=== PATIENT | male | born 1950 | race Caucasian/White ===

== ENCOUNTER → 2018-04-12 | Outpatient (CLI) | payer MEDICARE ==
[2018-04-12 13:41] LABS: ALANINE AMINOTRANSFERASE 33 U/L (21-72); ALBUMIN 4.1 g/dL (3.5-5.0); ALKALINE PHOSPHATASE 61 U/L (38-126); ANION GAP 13 (5-19); ASPARTATE AMINO TRANSFERASE 24 U/L (17-59); BILIRUBIN,DIRECT 0.3 mg/dL (0.0-0.4); BILIRUBIN,TOTAL 0.6 mg/dL (0.2-1.3); BLOOD UREA NITROGEN 16 mg/dL (7-20); CALCIUM 9.1 mg/dL (8.4-10.2); CARBON DIOXIDE 24 mmol/L (22-30); CHLORIDE 107 mmol/L (98-107); GLUCOSE 112 mg/dL (75-110); POTASSIUM 4.6 mmol/L (3.6-5.0); SODIUM 143.8 mmol/L (137-145)
== END ==
LOC: OD 10:54
PROVIDERS: ATTEND Internal Medicine
DX: E11.9 Type 2 diabetes mellitus without complications (principal); E78.5 Hyperlipidemia, unspecified
CPT/HCPCS: 36415; 80053; 83036; 84403

== ENCOUNTER 2018-04-18 06:55 | Day surgery (SDC) | payer MEDICARE, OTHER ==
[~2018-04-18 06:55] MED LIST: ACETAMINOPHEN 325 MG TABLET PO PRN; PROPOFOL INJ 200 MG/20 ML VIAL IV ONE; RINGERS SOLUTION,LACTATED 1,000 ML IV PRN
[2018-04-18 07:32] LABS: HEMOGLOBIN 15.8 g/dL (13.5-17.0); MEAN CORPUSCULAR HEMOGLOBIN 31.4 pg (27.0-33.4); MEAN CORPUSCULAR HGB CONC 35.1 g/dL (32.0-36.0); MEAN CORPUSCULAR VOLUME 90 fl (80-97); PLATELET COUNT 252 10^3/uL (150-450); RED BLOOD COUNT 5.02 10^6/uL (4.35-5.55); RED CELL DISTRIBUTION WIDTH 13.5 % (11.5-14.0); WHITE BLOOD COUNT 12.2 10^3/uL (4.0-10.5)
[2018-04-18] MEDS ORDERED: PROMETHAZINE HCL INJ 25 MG/1 ML VIAL IV PRN (08:10)
[2018-04-18] MEDS ORDERED: FENTANYL CITRATE INJ/PF 100 MCG/2 ML AMPUL IV PRN ×3 (08:10)
[2018-04-18] MEDS ORDERED: ONDANSETRON HCL INJ/PF 4 MG/2 ML SDV IV PRN (08:10)
[2018-04-18] MEDS ORDERED: DIPHENHYDRAMINE HCL 50 MG/ML VIAL IV PRN (08:10)
[2018-04-18 10:14] VITALS: BP 144/81
--- NOTE | 2018-04-18 15:08 | Discharge Summary ---
Discharge Summary (SDC) - Discharge Final Diagnosis: Colon polyp. Internal hemorrhoids. Get her diverticulosis. Date of Surgery: 04/18/18 Discharge Date: 04/18/18 Forms: ASU Anesthesia D/C Instruction, Discharge POC-Surgical Service Treatment or Instructions: Return to physician as directed. Referrals: HARSHAL AVENDANO MD [ACTIVE STAFF] - 05/01/18 8:45 am Respiratory Treatments at Home: Deep Breathing/Coughing Discharge Activity: Activity As Tolerated Home Care Assistance: None Needed Report the Following to Your Physician Immediately: Shortness of Breath, Nausea , Vomiting, Increase in Pain, Fever over 101 Degrees, Unusual Bleeding, Redness , Swelling, Warmth
--- NOTE | 2018-04-18 15:13 | Operative Report ---
Nonrecallable Operative Report DATE OF SURGERY: 04/18/18 PREOPERATIVE DIAGNOSIS: History of colon polyps. POSTOPERATIVE DIAGNOSIS: 1. Colon polyps. 2. Internal hemorrhoids, small. 3. Gout or diverticulosis without signs of diverticulitis. OPERATION: 1. Colonoscopy to the cecum. 2. Hot biopsy of colon polyps 2. SURGEON: HARSHAL AVENDANO ANESTHESIA: LMAC TISSUE REMOVED OR ALTERED: 1. Descending colon polyp. 2. Rectal polyp COMPLICATIONS: None apparent ESTIMATED BLOOD LOSS: Minimal PROCEDURE: Drains/implants: None. Procedure in detail: After informed consent was obtained, the patient was brought to the operating room and laid in the left lateral decubitus position. The endoscope was passed up the rectum, sigmoid colon, descending colon, across transverse colon, down the ascending colon, and into the cecum. The ileocecal valve and appendiceal orifice were identified. The scope was then withdrawn, circumferentially noting the mucosa. The prep was excellent. The scope was pulled back past the ascending colon. In the ascending colon a small, diminutive polyp was identified and removed via hot biopsy forceps. The scope was then pulled back past the transverse colon, down the descending colon, sigmoid colon, and into the rectum. In the rectum a small polyp was identified. This was also removed via hot biopsy forceps. In the rectosigmoid , there was found to be small scattered diverticulosis. There are no signs of diverticulitis. Scope was retroflexed in the rectum, and small, non-bleeding internal hemorrhoids were identified. The scope was straightened, air was suctioned from the rectum, the scope was then removed, and the procedure was concluded. All sponge, instrument, and needle counts were correct 2. Condition: Stable.
== END 2018-04-18 09:45 | disposition home or self-care (01) ==
LOC: OROUT 06:55
PROVIDERS: ATTEND Surgery
DX: Z12.11 Encounter for screening for malignant neoplasm of colon (principal); K63.5 Polyp of colon; K64.8 Other hemorrhoids; K57.30 Diverticulosis of large intestine without perforation or abscess without bleeding; Z86.010 Personal history of colon polyps; R73.03 Prediabetes; I10 Essential (primary) hypertension; R01.1 Cardiac murmur, unspecified; Z79.899 Other long term (current) drug therapy; Z88.5 Allergy status to narcotic agent
CPT/HCPCS: 45384; 36415; 85027; 88305 ×2; J2704; 811